=== PATIENT | female | born 1990 | race Caucasian/White ===

== ENCOUNTER → 2017-12-27 | Outpatient (REF) | payer OTHER | LOC: M SFHCLERA 18:19 | DX: R53.81 Other malaise (principal) ==

== ENCOUNTER → 2018-02-26 | Outpatient (REF) | payer OTHER | LOC: M SFHCLERA 13:28 | PROVIDERS: ATTEND Nurse Practitioner Family | DX: J02.9 Acute pharyngitis, unspecified (principal) ==

== ENCOUNTER → 2018-04-29 | Outpatient (REF) | payer OTHER | LOC: M SFHCLERA 14:24 | PROVIDERS: ATTEND Physician Assistant | DX: J02.9 Acute pharyngitis, unspecified (principal) ==

== ENCOUNTER → 2018-11-05 | Outpatient (REF) | payer OTHER | LOC: M SFHCLUC 11:00 | PROVIDERS: ATTEND Physician Assistant | DX: J02.9 Acute pharyngitis, unspecified (principal) ==

== ENCOUNTER → 2022-12-15 | Outpatient (REF) | payer BC | LOC: M LAB REF 21:16 | PROVIDERS: ATTEND Physician Assistant | DX: J02.9 Acute pharyngitis, unspecified (principal) ==

== ENCOUNTER → 2023-05-09 | Outpatient (REF) | payer BC | LOC: M LAB REF 21:27 | PROVIDERS: ATTEND Physician Assistant Medical | DX: J02.9 Acute pharyngitis, unspecified (principal) ==